=== PATIENT | female | born 1945 | race Caucasian/White ===

== ENCOUNTER 2018-10-30 23:43 | Inpatient (IN) | payer BC ==
--- NOTE | 2018-10-30 23:53 | Emergency Department Record ---
History of Present Illness - General Stated Complaint: KRYSTINA,NAUSEA Time Seen by Provider: 10/30/18 23:47 Source: Patient, EMS Mode of Arrival: EMS Limitations: No limitations - History of Present Illness Initial comments: 73 yo female presents by EMS. She states she did not feel well all day. She has had nausea, some vomiting and diarrhea during the day. She felt tired the day before. She has been constipated for about 3 days. She has taken two doses of Mirlax. In the evening she had a pain over the left flank under the left breast. The pain comes and goes. She has a history of atrial fibrillation, CHF, COPD, asthma, HTN, Crohn's, deconditioning, and obesity. No blood in the vomit or diarrhea. Dr Haines is her PCP. Dr Golden is her electophysiologist. 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 -: Days(s) Location: Left, Abdomen, Chest Radiation: Abdomen, Flank Quality: Other Consistency: Constant Improves with: None Worsens with: None Associated Symptoms: Chest pain, Loss of appetite, Nausea/vomiting, Weakness, Other (Diarrhea) - Ike Coma Scale Eye Response: (4) Open spontaneously Motor Response: (6) Obeys commands Verbal Response: (5) Oriented Ike Total: 15 - Related Data Home Medications Medication Instructions Recorded Confirmed Last Taken Acetaminophen [Tylenol Extra 500 mg PO Q4H PRN 10/31/18 10/31/18 Unknown Strength] Budesonide/Formoterol Fumarate 2 inh IH BID 10/31/18 10/31/18 Unknown [Symbicort 160-4.5 Mcg Inhaler] Bumetanide [Bumex] 2 mg PO DAILY 10/31/18 10/31/18 Unknown Calcium Carb, Citrate/Vit D3 1 each PO DAILY 10/31/18 10/31/18 Unknown [Citracal + D ER Tablet] Cyanocobalamin (Vitamin B-12) 2,000 mcg PO DAILY 10/31/18 10/31/18 Unknown [Vitamin B-12] Ferrous Sulfate [Iron] 325 mg PO DAILY 10/31/18 10/31/18 Unknown Fexofenadine HCl [Aller-Fex] 180 mg PO DAILY 10/31/18 10/31/18 Unknown Fluticasone Propionate 2 inh NS DAILY 10/31/18 10/31/18 Unknown Ipratropium/Albuterol Sulfate 1 puff IH QID PRN 10/31/18 10/31/18 Unknown [Combivent] Lisinopril 2.5 mg PO DAILY 10/31/18 10/31/18 Unknown Magnesium Oxide 400 mg PO TID 10/31/18 10/31/18 Unknown Metoprolol Succinate [Toprol Xl] 100 mg PO DAILY 10/31/18 10/31/18 Unknown Omeprazole 20 mg PO DAILYAC 10/31/18 10/31/18 Unknown Phenobarbital 30 mg PO BID 10/31/18 10/31/18 Unknown Polyethylene Glycol 3350 [Miralax] 17 gm PO DAILY 10/31/18 10/31/18 Unknown Rivaroxaban [Xarelto] 20 mg PO DAILY 10/31/18 10/31/18 Unknown Spironolactone [Aldactone] 25 mg PO DAILY 10/31/18 10/31/18 Unknown Sulfasalazine [Azulfidine] 1,000 mg PO BID 10/31/18 10/31/18 Unknown Ustekinumab [Stelara] 90 mg SQ MONTHLY 10/31/18 10/31/18 Unknown Allergies Allergy/AdvReac Type Severity Reaction Status Date / Time hops Allergy PT UNSURE Verified 10/31/18 00:05 OF REACTION strawberry Allergy PT UNSURE Verified 10/31/18 00:05 OF REACTION Review of Systems Constitutional: Reports: Malaise, Weakness. Denies: Chills, Fever Eyes: Denies: Eye discharge, Photophobia, Vision change ENT: Denies: Congestion, Throat pain Respiratory: Reports: Dyspnea. Denies: Cough, Hemoptysis, Wheezes Cardiovascular: Reports: Chest pain, Dyspnea on exertion, Edema. Denies: Palpitations, Syncope Endocrine: Reports: Fatigue Gastrointestinal: Reports: Abdominal pain, Constipation, Diarrhea, Nausea, Vomiting Genitourinary: Denies: Dysuria, Urgency Musculoskeletal: Denies: Arthralgia, Back pain, Joint swelling, Myalgia Skin: Denies: Bruising, Change in color, Rash Neurological: Denies: Confusion, Headache Psychiatric: Denies: Anxiety Hematological/Lymphatic: Denies: Easy bleeding, Easy bruising Physical Exam - General General Appearance: Alert, Oriented x3, Cooperative, No acute distress Limitations: No limitations - Head Head exam: Atraumatic, Normal inspection - Eye Eye exam: Normal appearance, PERRL. negative: Conjunctival injection, Scleral icterus - ENT ENT exam: Normal exam Ear exam: Normal external inspection Nasal Exam: Normal inspection Mouth exam: Normal external inspection - Neck Neck exam: Normal inspection - Respiratory Respiratory exam: Decreased breath sounds, Prolonged expiratory. negative: Normal lung sounds bilaterally - Cardiovascular Cardiovascular Exam: Irregular rhythm, Tachycardia. negative: Regular rate Peripheral Pulses: 2+: Radial (R), Radial (L) - GI/Abdominal GI/Abdominal exam: Soft - Rectal Rectal exam: Deferred, Heme (-) stool, Normal rectal tone. negative: Black stool, Bloody stool, Decreased rectal tone, Fecal impaction (No stool at the anus) - exam: Deferred - Extremities Extremities exam: Pedal edema. negative: Normal inspection - Back Back exam: Denies: CVA tenderness (R), CVA tenderness (L) - Neurological Neurological exam: Alert, Oriented X3 - Psychiatric Psychiatric exam: Normal affect, Normal mood - Skin Skin exam: Dry, Intact, Normal color, Warm Course - Reevaluation(s) Reevaluation #1: EKG #1: 23:49 Rate: 106 Rhythm: atrial fibrillation with PVC [place]: R Intervals: Qtc 471 ST segments: Inverted T waves inferior Prior: None 10/31/18 00:02 10/31/18 00:58 The CBC, CMP and Lipase were reviewed No significant changes The UA is negative for infection positive for ketones and 1.025 spec gravity The troponin is negative 10/31/18 01:34 On recheck the patient is resting comfortably. No nausea or pain. 10/31/18 02:[address] was reviewed. Extensive stool impaction involving the distal colon and rectum with mild rectal wall thickening suggesting proctitis resulting is a mild degree of distal colon obstruction, severe gall bladder distention, cardiomegaly, coronary calcifications, 10/31/18 02:29 Due to the extensive nature of the colonic stool an emema will be preformed in the ED then admit for further bowel treatment. 10/31/18 02:53 On MIREYA no stool at the anus to extract manual. Enema ordered prior to admission. 10/31/18 03:16 RN reports a copious amount of fecal material was produced with the enema Medical Decision Making - Lab Data Result diagrams: 10/30/18 23:30 10/30/18 23:30 Disposition Disposition: Admit Clinical Impression: Vomiting and diarrhea, Colonic constipation Disposition: Still a Patient at [facility] Decision to Admit: Admit from ER Decision to Admit Date: 10/31/18 Decision to Admit Time: 01:00 Condition: (2) Stable Time of Disposition: 00:59 Quality - Quality Measures Quality Measures: N/A - Blood Pressure Screening Does Patient Have Any of the Following: Active Dx of HTN Blood Pressure Classification: Normal BP Reading Systolic Measurement: 110 Diastolic Measurement: 41 Screening for High Blood Pressure: Patient Exclusion, Hx of HTN [[id number]]
[2018-10-31 00:07] LABS: HEMATOCRIT 40.3 % (35.0-47.0); HEMOGLOBIN 12.4 gm/dl (11.6-16.0); MEAN CELL VOLUME 95.3 fl (81-97); MEAN CORPUSCULAR HEMOGLOBIN 29.3 pg (27-33); MEAN CORPUSCULAR HGB CONC 30.8 g/dl (32-36); MEAN PLATELET VOLUME 9.5 fl (7.4-10.4); PLATELET COUNT 327 K/uL (130-400); RED BLOOD COUNT 4.23 M/uL (3.80-5.40); RED CELL DISTRIBUTION WIDTH 14.6 % (11.5-14.5); WHITE BLOOD COUNT W/O DIFF 9.1 K/uL (4.2-12.2)
[2018-10-31] MEDS ORDERED: ONDANSETRON HCL IV 4 MG/2 ML VIAL IVP ONE ×2 (00:14→03:03)
[2018-10-31 00:16] LABS: BLOOD UREA NITROGEN 16 mg/dL (8-23); CREATININE 0.4 mg/dL (0.5-0.9); EST GLOMERULAR FILTRATION RATE > 60 mL/min
[2018-10-31 00:17] LABS: TOTAL PROTEIN 6.8 g/dL (6.6-8.7)
[2018-10-31 00:19] LABS: GLUCOSE,RANDOM 161 mg/dL (74-109)
[2018-10-31 00:21] LABS: ALB/GLOB RATIO 1.2 (1.1-1.8); ALBUMIN 3.7 g/dL (4.0-5.0); ALT/SGPT 26 U/L (<33); AST/SGOT 21 U/L (10.0-35.0)
[2018-10-31 00:22] LABS: ALKALINE PHOSPHATASE 206 U/L (35-104)
[2018-10-31 00:27] LABS: ABSOLUTE NEUTROPHIL COUNT 4.46; ANISOCYTOSIS 1+; PLATELET ESTIMATE NORMAL (NORMAL); TOXIC GRANULATION 1+
[2018-10-31 00:37] LABS: URINE APPEARANCE CLEAR; URINE BILIRUBIN MODERATE (NEGATIVE); URINE BLOOD NEGATIVE (NEGATIVE); URINE COLOR YELLOW; URINE GLUCOSE (UA) NEGATIVE (NEGATIVE); URINE KETONE TRACE (NEGATIVE); URINE LEUKOCYTE ESTERASE NEGATIVE (NEGATIVE); URINE NITRITE NEGATIVE (NEGATIVE); URINE PROTEIN NEGATIVE (NEGATIVE)
[2018-10-31] MEDS ORDERED: ORPHENADRINE CITRATE 100 MG PO PRN (03:40)
[2018-10-31] MEDS ORDERED: POLYETHYLENE GLY 17 GM PACKET PO ONE (03:40)
[2018-10-31] MEDS ORDERED: ONDANSETRON HCL IV 4 MG/2 ML VIAL IVP PRN (03:40)
--- NOTE | 2018-10-31 07:03 | History & Physical ---
History of Present Illness - Date of Service Date of Service for History & Physical: 10/31/18 - History of Present Illness Admitting Diagnosis: atrial fibrillation, constipation, vomiting History of Present Illness: Mrs. Bowden is a 73 y/o female who says that she began having what she describes as abdominal 'tightness' and trouble breathing yesterday. She says that her symptoms gradually got worse and she didn't have anyone to call so she called EMS. The patient says that she felt nauseated but denies, chest pain, shortness of breath, diarrhea, fever or chills. She states that she used Miralax about 3 days ago prior to coming in due to constipation. She says that her last bowel was about 4 days ago and it was normal for her and was not bloody. The patient says that she had a colonoscopy in May 2018 and there was no significant findings. On presentation the ED the patient still complained of mild abdominal discomfort and abdominal CT showed significant fecal matter. (Radiology recalled at approx 8:55 am to report read error and notes partial small bowel obstruction.) The patient is admitted to the [facility] for bowel rest and pain control. PCP: Dr. Luca Rowan Hx of brain tumor on pehnobarb Travel Screening - Travel/Exposure Within Last 30 Days Have you traveled within the last 30 days?: No - Travel/Exposure Within Last Year Have you traveled outside the [place] in the last year?: No - Additonal Travel Details Have you been exposed to anyone with a communicable illness?: No - Travel Symptoms Symptom Screening: Vomiting, Stomach Pain Review of Systems Constitutional: Reports: Malaise, Weakness. Denies: Chills, Fever Eyes: Denies: Eye discharge, Photophobia, Vision change ENT: Denies: Congestion, Throat pain Respiratory: Reports: Dyspnea. Denies: Cough, Hemoptysis, Wheezes Cardiovascular: Reports: Chest pain, Dyspnea on exertion, Edema. Denies: Palpitations, Syncope Endocrine: Reports: Fatigue Gastrointestinal: Reports: Abdominal pain, Constipation, Diarrhea, Nausea, Vomiting Genitourinary: Denies: Dysuria, Urgency Musculoskeletal: Denies: Arthralgia, Back pain, Joint swelling, Myalgia Skin: Denies: Bruising, Change in color, Rash Neurological: Denies: Confusion, Headache Psychiatric: Denies: Anxiety Hematological/Lymphatic: Denies: Easy bleeding, Easy bruising Past Medical History - SOCIAL HISTORY Smoking Status: Former smoker Alcohol Use: Rare Drug Use: None - RESPIRATORY Hx Respiratory Disorders: Yes Hx COPD: Yes Hx Pneumonia: Yes Hx Sleep Apnea: Yes Hx of CPAP: Yes Comment:: left CPAP at home - CARDIOVASCULAR Hx Cardio Disorders: Yes Hx CHF: Yes (years ago) Hx Hypertension: Yes Hx Irregular Heartbeat: Yes (afib) - NEURO Hx Neuro Disorders: Yes Hx Brain Tumor: Yes (benign) - GI Hx GI Disorders: Yes Hx Crohn's Disease: Yes Hx Reflux: Yes Hx Wt Loss/Wt Gain: Yes (gain) - Hx Genitourinary Disorders: No - ENDOCRINE Hx Endocrine Disorders: No - MUSCULOSKELETAL Hx Musculoskeletal Disorders: Yes Hx Arthritis: Yes Hx Back Injury: Yes - PSYCH Hx Psych Problems: No - HEMATOLOGY/ONCOLOGY Hx Hematology/Oncology Disorders: Yes Hx Anemia: Yes Family Medical History Any Significant Family History?: No Hx Cancer: Mother Hx Diabetes: Father Hx Heart Disease: Father, Grandparents Hx HTN: Father Hx Resp Disorders: Brother/Sister *Resp Comment: brothers with asthma Hx Stroke: Grandparents H&P Meds/Allergies - Allergies Allergies: Allergies Allergy/AdvReac Type Severity Reaction Status Date / Time hops Allergy PT UNSURE Verified 10/31/18 00:05 OF REACTION strawberry Allergy PT UNSURE Verified 10/31/18 00:05 OF REACTION - Home Medications Home Medications Medication Instructions Recorded Confirmed Last Taken Acetaminophen [Tylenol Extra 500 mg PO Q4H PRN 10/31/18 10/31/18 Unknown Strength] Budesonide/Formoterol Fumarate 2 inh IH BID 10/31/18 10/31/18 Unknown [Symbicort 160-4.5 Mcg Inhaler] Bumetanide [Bumex] 2 mg PO DAILY 10/31/18 10/31/18 Unknown Calcium Carb, Citrate/Vit D3 1 each PO DAILY 10/31/18 10/31/18 Unknown [Citracal + D ER Tablet] Cyanocobalamin (Vitamin B-12) 2,000 mcg PO DAILY 10/31/18 10/31/18 Unknown [Vitamin B-12] Ferrous Sulfate [Iron] 325 mg PO DAILY 10/31/18 10/31/18 Unknown Fexofenadine HCl [Aller-Fex] 180 mg PO DAILY 10/31/18 10/31/18 Unknown Fluticasone Propionate 2 inh NS DAILY 10/31/18 10/31/18 Unknown Ipratropium/Albuterol Sulfate 1 puff IH QID PRN 10/31/18 10/31/18 Unknown [Combivent] Lisinopril 2.5 mg PO DAILY 10/31/18 10/31/18 Unknown Magnesium Oxide 400 mg PO TID 10/31/18 10/31/18 Unknown Metoprolol Succinate [Toprol Xl] 100 mg PO DAILY 10/31/18 10/31/18 Unknown Omeprazole 20 mg PO DAILYAC 10/31/18 10/31/18 Unknown Phenobarbital 30 mg PO BID 10/31/18 10/31/18 Unknown Polyethylene Glycol 3350 [Miralax] 17 gm PO DAILY 10/31/18 10/31/18 Unknown Rivaroxaban [Xarelto] 20 mg PO DAILY 10/31/18 10/31/18 Unknown Spironolactone [Aldactone] 25 mg PO DAILY 10/31/18 10/31/18 Unknown Sulfasalazine [Azulfidine] 1,000 mg PO BID 10/31/18 10/31/18 Unknown Ustekinumab [Stelara] 90 mg SQ MONTHLY 10/31/18 10/31/18 Unknown - Active Medications Active Medications: Current Medications Fluticasone Propionate (Flonase) 1 spray NA DAILY [facility] Lisinopril (Zestril) 2.5 mg PO DAILY [facility] Metoprolol Succinate (Toprol Xl) 100 mg PO DAILY [facility] Non-Formulary Medication (Budesonide/Formoterol Fumarate [Symbicort 160-4.5 Mcg Inhaler]) 10.2 gm IH TID PRN PRN Reason: DIFFICULTY IN BREATHING Non-Formulary Medication (Orphenadrine Citrate [Norflex]) 100 mg PO Q12H PRN PRN Reason: SPASMS Non-Formulary Medication (Phenobarbital [Phenobarbital]) 30 mg PO BID [facility] Ondansetron HCl (Zofran) 4 mg IVP Q4H PRN PRN Reason: NAUSEA Pantoprazole Sodium (Protonix) 40 mg PO DAILYAC [facility] Polyethylene Glycol (Miralax) 17 gm PO DAILY [facility] Rivaroxaban (Xarelto) 20 mg PO DAILY [facility] Spironolactone (Aldactone) 25 mg PO DAILY [facility] Tramadol HCl (Ultram) 50 mg PO BID [facility] Physical Exam - Vital Signs Vital Signs: Vital Signs - Last 24 Hrs Temp Pulse Pulse Resp BP BP Pulse Ox 10/31/18 03:40 97.8 F 91 H 22 134/58 96 10/31/18 03:05 84 20 98 10/31/18 01:41 94 H 24 154/97 97 10/31/18 00:34 106 H 24 123/67 94 L 10/30/18 23:45 97.6 F 83 24 110/41 94 L - General General Appearance: Alert, Oriented x3, Cooperative, No acute distress Limitations: No limitations - Head Head exam: Atraumatic, Normal inspection - Eye Eye exam: Normal appearance, PERRL. negative: Conjunctival injection, Scleral icterus - ENT ENT exam: Normal exam Ear exam: Normal external inspection Nasal Exam: Normal inspection Mouth exam: Normal external inspection - Neck Neck exam: Normal inspection - Respiratory Respiratory exam: Decreased breath sounds, Prolonged expiratory. negative: Normal lung sounds bilaterally - Cardiovascular Cardiovascular Exam: Irregular rhythm, Tachycardia. negative: Regular rate Peripheral Pulses: 2+: Radial (R), Radial (L) - GI/Abdominal GI/Abdominal exam: Soft, Distended, Hyperactive bowel sounds. negative: Tenderness - Rectal Rectal exam: Deferred, Heme (-) stool, Normal rectal tone. negative: Black stool, Bloody stool, Decreased rectal tone, Fecal impaction (No stool at the anus) - exam: Deferred - Extremities Extremities exam: Pedal edema. negative: Normal inspection - Back Back exam: Denies: CVA tenderness (R), CVA tenderness (L) - Neurological Neurological exam: Alert, Oriented X3 - Psychiatric Psychiatric exam: Normal affect, Normal mood - Skin Skin exam: Dry, Intact, Normal color, Warm Results - Labs Result Diagrams: 10/30/18 23:30 10/30/18 23:30 Labs Last 24 Hours: Laboratory Results - last 24 hr 10/30/18 10/30/18 10/31/18 23:30 23:30 00:01 WBC 9.1 RBC 4.23 Hgb 12.4 Hct 40.3 MCV 95.3 MCH 29.3 MCHC 30.8 L RDW 14.6 H Plt Count 327 MPV 9.5 Neutrophils % 49.0 Band Neutrophils % 22.0 H Eosinophils % Not Reportable Basophils % Not Reportable Absolute Neutrophils 4.46 Lymphocytes 11.0 L Monocytes 18.0 H Toxic Granulation 1+ Platelet Estimate Normal Anisocytosis 1+ Sodium 138 Potassium 4.0 Chloride 99 Carbon Dioxide 27.0 Anion Gap 12.0 BUN 16 Creatinine 0.4 L Estimated GFR > 60 Random Glucose 161 H Calcium 8.8 Total Bilirubin 0.90 AST 21 ALT 26 Alkaline Phosphatase 206 H Troponin T < 0.010 NT-Pro-B Natriuret Pep 798.00 H Total Protein 6.8 Albumin 3.7 L Globulin 3.1 Albumin/Globulin Ratio 1.2 Lipase 11 L Urine Color Urine Appearance Urine pH Ur Specific [place] Urine Protein Urine Glucose (UA) Urine Ketones Urine Blood Urine Nitrite Urine Bilirubin Urine Urobilinogen Ur Leukocyte Esterase 10/31/18 00:20 WBC RBC Hgb Hct MCV MCH MCHC RDW Plt Count MPV Neutrophils % Band Neutrophils % Eosinophils % Basophils % Absolute Neutrophils Lymphocytes Monocytes Toxic Granulation Platelet Estimate Anisocytosis Sodium Potassium Chloride Carbon Dioxide Anion Gap BUN Creatinine Estimated GFR Random Glucose Calcium Total Bilirubin AST ALT Alkaline Phosphatase Troponin T NT-Pro-B Natriuret Pep Total Protein Albumin Globulin Albumin/Globulin Ratio Lipase Urine Color Yellow Urine Appearance Clear Urine pH 6.0 Ur Specific [place] 1.025 Urine Protein Negative Urine Glucose (UA) Negative Urine Ketones Trace H Urine Blood Negative Urine Nitrite Negative Urine Bilirubin Moderate H Urine Urobilinogen 1.0 Ur Leukocyte Esterase Negative VTE H&P Assessment - Risk for VTE Risk for VTE: Yes Risk Level: High Risk Assessment Date: 10/31/18 Risk Assessment Time: 08:40 VTE Orders Placed or Will Be Placed: Yes Plan - Inpatient Certification Inpatient Certification: Admit to inpatient care: Based on my medical assessment, after consideration of patient's risk factors (age, co-morbidities and patient presenting symptoms and acuity), I expect that this patient will remain in the hospital greater than or equal to two midnights and that the services needed warrant inpatient care because: Patient Risk Factors: partial SBO, CHF, A fib Estimated length of stay: 72 hrs The patient may reasonably be expected to be discharged or transferred to a hospital within 96 hours after admission to [facility]. I certify that my determination is in accordance with my understanding of Medicare requirements for reasonable and necessary inpatient services. 10/31/18 10:06 - Detailed Diagnosis and Plan (1) Colonic constipation Current Visit: Yes Status: Acute Base Code: K59.00 - CONSTIPATION, UNSPECIF IED Comment: 10/31/18: - Last bowel movement before admission: - CT abdomen: significant bowel distension and large volume fecal matter, multiple loops of dilated small bowel, thickening at transition zone with possibility of partial small bowel loop. - 1 large bowel movement after enema given. - Continue with polyethylene gylcol, NPO, gentle IVF 0.9% @ 75mL/hr due to hx of CHF. (2) Atrial fibrillation Current Visit: Yes Status: Acute Base Code: I48.91 - UNSPECIFIED ATRIAL FIBRILLATION Comment: 10/31/18: - Rate controlled chronic atrial fibrillation. - ECG: rate controlled a fib, vent rate approx 105. No acute ST-T changes. - Resume Toprolol XL 100mg QD, anticoagulation with Xarelto 20mg QD. - Continuous cardiac monitoring. (3) Hx of chronic congestive heart failure Current Visit: Yes Status: Acute Base Code: Z86.79 - PERSONAL HISTORY OF OTHER DISEASES OF THE CIRCULATORY SYSTEM Comment: 10/31/18: - Resume home doses of Bumex, Aldactone,Toprolol, Lisinopril. - NPO, IVF 0.9% @ 75mL/hr. (4) COPD (chronic obstructive pulmonary disease) Current Visit: Yes Status: Acute Base Code: J44.9 - CHRONIC OBSTRUCTIVE PU LMONARY DISEASE, UNSPECIFIED Comment: 10/31/18: - Respiratory therapy with Breo, Albuterol nebs PRN. (5) DVT prophylaxis Current Visit: Yes Status: Acute Base Code: Z29.9 - ENCOUNTER FOR PROPHYLACTIC MEASURES, UNSPECIFIED Comment: 10/31/18: - High risk due to a fib, obesity, CHF. - Therapeutic dosing of Xarelto due to chronic a fib. (6) Full code status Current Visit: Yes Status: Acute Base Code: Z78.9 - OTHER SPECIFIED HEALTH STATUS Comment: 10/31/18: - Full code status.
[2018-10-31] MEDS: PANTOPRAZOLE SODIUM 40 MG TABLET PO SCH (08:42)
--- NOTE | 2018-10-31 08:52 | RADIOLOGY REPORT ---
EXAM: PORTABLE CHEST HISTORY: LET SIDED CHEST PAIN. SHORTNESS OF BREATH. TECHNIQUE: A single mobile semi-erect view of the chest was obtained. Comparison: None. FINDINGS: The image is obtained with the patient in a lordotic position. There is enlargement of the cardio-pericardial silhouette which appears somewhat globular. This is consistent with cardiomegaly. underlying pericardial effusion is not excluded. No pulmonary venous hypertension is seen. No definite lung consolidation, costophrenic angle blunting or pneumothorax identified though the left hemithorax base is not optimally evaluated due to underpenetration. The aortic knob is atherosclerotic. IMPRESSION: 1. ENLARGED CARDIO-PERICARDIAL SILHOUETTE CONSISTENT WITH CARDIOMEGALY AND POSSIBLE PERICARDIAL EFFUSION. NO PULMONARY VENOUS HYPERTENSION. NO DEFINITE ACUTE PULMONARY PROCESS THOUGH EVALUATION OF THE LEFT BASE IS LIMITED BY UNDERPENETRATION. JOB NUMBER: [id number] MTDD
[2018-10-31] MEDS ORDERED: KETOROLAC 30 MG/ML VIAL IVP ONE (09:13)
[2018-10-31] MEDS ORDERED: 0.9 % SODIUM CHLORIDE 100ML BAG IV SCH (09:15)
[2018-10-31] MEDS ORDERED: ALBUTEROL SULFATE (0.083%) 2.5 MG/3 ML NEB INH PRN (09:17)
--- NOTE | 2018-10-31 09:36 | CT SCAN REPORT ---
EXAM: CT OF THE ABDOMEN AND PELVIS WITH CONTRAST HISTORY: DIFFICULTY IN BREATHING. TIGHTNESS IN CHEST. LEFT SIDED PAIN. TECHNIQUE: Contrast enhanced helical CT examination of the abdomen and pelvis was performed including delayed images through the kidneys with 100 ml of Omnipaque 300 utilized. Comparison: Same day portable chest. FINDINGS: There is evidence of four chamber heart enlargement. There is mild calcification of the mitral annulus. No pericardial effusion. Minor linear scarring versus atelectasis is present within the left lung base laterally. Mild compressive atelectasis within the posteromedial left lung base. No lung base consolidation, pleural effusion or pneumothorax. The liver, spleen, pancreas, right adrenal gland, and left kidney are normal in appearance. A tiny hypodensity is demonstrated within the lateral right mid kidney measuring 6 mm. This is nonspecific, but likely a cyst. There is a tiny fat density focus questioned in the posteromedial right mid kidney suggesting a tiny angiomyolipoma. The right kidney is otherwise normal in appearance. There is s small left adrenal gland mass measuring 1.4 cm in maximum diameter. On portal venous phase images this has a density of 47 Hounsfield units. On delayed images, 23 Hounsfield units. This is greater than 40% relative washout and is consistent with adrenal adenoma. There is moderate distention of the gallbladder. This is nonspecific. There is likely sludge or tiny noncalcified stones within the dependent gallbladder. No gallbladder wall thickening or pericholecystic fluid. No biliary ductal dilatation. No intraabdominal nor retroperitoneal lymphadenopathy. There are a few nonenlarged periportal lymph nodes present. The portal vein is patent. There is mild atherosclerosis without aneurysmal dilatation of the abdominal aorta nor iliac arteries. The uterus is surgically absent. No intrinsic urinary bladder abnormality. There is a large amount of stool within the rectal vault. The wall of the distal rectum appears borderline to mildly prominent. This is consistent with stercoral proctitis. Additionally, there is a moderate to large amount of stool within the colon. There is a small sliding type hiatal hernia. There are multiple loops of gas and fluid distended, dilated small bowel with associated air fluid levels extending to the distal ileum level where there is a relatively narrow zone of transition. Just beyond the narrow zone of transition the bowel wall appears mildly thickened and there is a questionable enterocolic anastomosis present. The etiology of this is uncertain. This apparent wall thickening may be partially explained by lack of distention. A segment of inflammation or less likely mass are also considered. No pneumatosis intestinalis. No free intraperitoneal air. No lytic or blastic bone lesion. IMPRESSION: 1. MULTIPLE DILATED SMALL BOWEL LOOPS TO THE LEVEL OF THE DISTAL ILEUM WHERE THERE IS A RELATIVE NARROW ZONE OF TRANSITION AND BEYOND THE ZONE OF TRANSITION THE DISTAL ILEUM WALL APPEARS SOMEWHAT THICKENED. THESE FINDINGS ARE SUSPICIOUS FOR A PARTIAL SMALL BOWEL OBSTRUCTION. PARALYTIC ILEUS IS LESS LIKELY. THERE IS A QUESTIONABLE ENTEROCOLIC ANASTOMOSIS IN THE RIGHT MID ABDOMEN. 2. LARGE AMOUNT OF STOOL WITHIN THE RECTAL VAULT WITH MALL THICKENING CONSISTENT WITH STERCORAL PROCTITIS. IMPACTION IS POSSIBLE. 3. SMALL LEFT ADRENAL ADENOMA. 4. TOO SMALL TO CHARACTERIZE HYPODENSE LESIONS WITHIN THE RIGHT KIDNEY, DISCUSSED ABOVE., 5. SMALL SLIDING TYPE HIATAL HERNIA. 6. CARDIOMEGALY. JOB NUMBER: [id number] [facility]
[2018-10-31] MEDS ORDERED: FLUTICASONE PROPIONATE 50MCG NASAL 16 GM BTL SCH (10:00)
[2018-10-31] MEDS ORDERED: PHENOBARBITAL 30 MG PO SCH (10:00)
[2018-10-31] MEDS ORDERED: IPRATROPIUM/ALBUTEROL (0.5MG/3MG) NEB INH PRN (10:00)
[2018-10-31] MEDS ORDERED: TRAMADOL HCL 50 MG TABLET PO SCH (10:00)
[2018-10-31] MEDS: BREO (FLUTICASONE/VILANTEROL) 200MCG/25MCG INHALER INH SCH (10:14)
[2018-10-31] MEDS: METOPROLOL SUCC 50 MG TABLET PO SCH (10:40)
[2018-10-31] MEDS: MAGNESIUM OXIDE 400 MG TABLET PO SCH ×2 (10:40→21:20)
[2018-10-31] MEDS: PHENOBARBITAL 60 MG PO SCH ×2 (10:40→21:21)
[2018-10-31] MEDS: BUMETANIDE 1 MG TABLET PO SCH (10:40)
[2018-10-31] MEDS: SPIRONOLACTONE 25 MG TAB PO SCH (10:40)
[2018-10-31] MEDS: 0.9 % SODIUM CHLORIDE 1000ML 1,000 ML IV SCH (10:40)
[2018-10-31] MEDS: LISINOPRIL 5 MG TABLET PO SCH (10:40)
[2018-10-31] MEDS: PATIENT OWN MED: SULFASALAZINE 500 MG PO SCH ×2 (11:08→21:20)
[2018-10-31] MEDS: POLYETHYLENE GLY 17 GM PACKET PO SCH (11:17)
[2018-10-31] MEDS ORDERED: RIVAROXABAN 20 MG TABLET PO SCH (17:30)
[2018-11-01] MEDS: 0.9 % SODIUM CHLORIDE 1000ML 1,000 ML IV SCH (00:33)
[2018-11-01] MEDS ORDERED: ACETAMINOPHEN 500 MG TABLET PO PRN (04:58)
[2018-11-01] MEDS: PANTOPRAZOLE SODIUM 40 MG TABLET PO SCH (06:11)
[2018-11-01 06:38] LABS: HEMATOCRIT 35.8 % (35.0-47.0); HEMOGLOBIN 10.4 gm/dl (11.6-16.0); MEAN CELL VOLUME 99.4 fl (81-97); MEAN CORPUSCULAR HGB CONC 29.1 g/dl (32-36); MEAN PLATELET VOLUME 9.2 fl (7.4-10.4); PLATELET COUNT 275 K/uL (130-400); RED CELL DISTRIBUTION WIDTH 14.8 % (11.5-14.5)
[2018-11-01 06:39] LABS: MEAN CORPUSCULAR HEMOGLOBIN 28.8 pg (27-33)
[2018-11-01 06:57] LABS: ALB/GLOB RATIO 1.1 (1.1-1.8); ALKALINE PHOSPHATASE 160 U/L (35-104); ALT/SGPT 17 U/L (<33); AST/SGOT 12 U/L (10.0-35.0); BLOOD UREA NITROGEN 17 mg/dL (8-23); CREATININE 0.7 mg/dL (0.5-0.9); EST GLOMERULAR FILTRATION RATE > 60 mL/min; GLUCOSE,RANDOM 119 mg/dL (74-109); LIPASE 9 U/L (13-60); TOTAL PROTEIN 5.7 g/dL (6.6-8.7)
[2018-11-01] MEDS: BREO (FLUTICASONE/VILANTEROL) 200MCG/25MCG INHALER INH SCH (09:45)
[2018-11-01] MEDS: LISINOPRIL 5 MG TABLET PO SCH (09:56)
[2018-11-01] MEDS: SPIRONOLACTONE 25 MG TAB PO SCH (09:57)
[2018-11-01] MEDS: POLYETHYLENE GLY 17 GM PACKET PO SCH (09:57)
[2018-11-01] MEDS: MAGNESIUM OXIDE 400 MG TABLET PO SCH (09:57)
[2018-11-01] MEDS: BUMETANIDE 1 MG TABLET PO SCH (09:57)
[2018-11-01] MEDS: METOPROLOL SUCC 50 MG TABLET PO SCH (09:57)
[2018-11-01] MEDS: PATIENT OWN MED: SULFASALAZINE 500 MG PO SCH (10:02)
[2018-11-01] MEDS: PHENOBARBITAL 60 MG PO SCH (10:03)
--- NOTE | 2018-11-01 10:14 | Discharge Summary ---
Providers Discharge Summary Date: 11/01/18 Date of admission: 10/31/18 03:19 Attending physician: ERMA MCKEON Primary care physician: ALFA HORN D.O. Physical Exam - Vital Signs Vital Signs: Vital Signs - Last 24 Hrs Temp Pulse Pulse Pulse Resp BP Pulse Ox 11/01/18 09:48 103 H 20 97 11/01/18 08:39 98.4 F 103 H 18 115/59 90 L 11/01/18 04:55 97.3 F L 89 18 131/67 96 11/01/18 00:00 90 20 114/59 97 10/31/18 21:26 18 10/31/18 20:01 98.3 F 88 18 120/54 98 10/31/18 16:27 97.8 F 97 H 16 142/81 94 L 10/31/18 11:30 97.9 F 107 H 18 160/69 93 L - General General Appearance: Alert, Oriented x3, Cooperative, No acute distress Limitations: No limitations - Head Head exam: Atraumatic, Normal inspection - Eye Eye exam: Normal appearance, PERRL. negative: Conjunctival injection, Scleral icterus - ENT ENT exam: Normal exam Ear exam: Normal external inspection Nasal Exam: Normal inspection Mouth exam: Normal external inspection - Neck Neck exam: Normal inspection - Respiratory Respiratory exam: Decreased breath sounds, Prolonged expiratory. negative: Normal lung sounds bilaterally - Cardiovascular Cardiovascular Exam: Irregular rhythm, Tachycardia. negative: Regular rate Peripheral Pulses: 2+: Radial (R), Radial (L) - GI/Abdominal GI/Abdominal exam: Soft, Normal bowel sounds. negative: Tenderness - Rectal Rectal exam: Deferred, Heme (-) stool, Normal rectal tone. negative: Black stool, Bloody stool, Decreased rectal tone, Fecal impaction (No stool at the anus) - exam: Deferred - Extremities Extremities exam: Pedal edema, Other (left calf erythema ). negative: Normal inspection - Back Back exam: Denies: CVA tenderness (R), CVA tenderness (L) - Neurological Neurological exam: Alert, Oriented X3 - Psychiatric Psychiatric exam: Normal affect, Normal mood - Skin Skin exam: Dry, Intact, Normal color, Warm Hospitalization - Hospitalization Admission Diagnosis: atrial fibrillation, constipation, vomiting - Problem List/Discharge Diagnosis (1) Colonic constipation Current Visit: Yes Status: Acute Base Code: K59.00 - CONSTIPATION, UNSPECIFIED Comment: 11/01/18: - Last bowel movement before admission: - CT abdomen: significant bowel distension and large volume fecal matter, multiple loops of dilated small bowel, thickening at transition zone with possibility of partial small bowel loop. - 1 large bowel movement after enema given. - Continue with polyethylene gylcol, NPO, gentle IVF 0.9% @ 75mL/hr due to hx of CHF. - CMP, CBC w/diff, Lipase 11/01/ WNL. - 2 large bowel movements yesterday. - Tolerating clear liquid diet. Advance to soft diet this morning. (2) Atrial fibrillation Current Visit: Yes Status: Acute Base Code: I48.91 - UNSPECIFIED ATRIAL FIBRILLATION Comment: 11/01/18: - Rate controlled chronic atrial fibrillation. Stable - ECG: rate controlled a fib, vent rate approx 105. No acute ST-T changes. - Resume Toprolol XL 100mg QD, anticoagulation with Xarelto 20mg QD. - Continuous cardiac monitoring. (3) Hx of chronic congestive heart failure Current Visit: Yes Status: Acute Base Code: Z86.79 - PERSONAL HISTORY OF OTHER DISEASES OF THE CIRCULATORY SYSTEM Comment: 11/01/18: - Resume home doses of Bumex, Aldactone,Toprolol, Lisinopril. - NPO, IVF 0.9% @ 75mL/hr. (4) COPD (chronic obstructive pulmonary disease) Current Visit: Yes Status: Acute Base Code: J44.9 - CHRONIC OBSTRUCTIVE PULMONARY DISEASE, UNSPECIFIED Comment: 11/01/18: - Respiratory therapy with Breo, Albuterol nebs PRN. (5) DVT prophylaxis Current Visit: Yes Status: Acute Base Code: Z29.9 - ENCOUNTER FOR PROPHYLACTIC MEASURES, UNSPECIFIED Comment: 11/01/18: - High risk due to a fib, obesity, CHF. - Therapeutic dosing of Xarelto due to chronic a fib. (6) Full code status Current Visit: Yes Status: Acute Base Code: Z78.9 - OTHER SPECIFIED HEALTH STATUS Comment: 11/01/18: - Full code status. (7) Cellulitis of right anterior lower leg Current Visit: Yes Status: Acute Base Code: L03.115 - CELLULITIS OF RIGHT LOWER LIMB Comment: 11/01/18: - Mild, non-purulent cellulitis of right leg. - Hx of venous insufficiency. - Keflex 500mg BID x 7 days. No reported abx allergies. - Hospitalization Course Disposition: Home, Self-Care Hospital Course: Mrs. Bowden is a 73 y/o female who says that she began having what she describes as abdominal 'tightness' and trouble breathing yesterday. She says that her symptoms gradually got worse and she didn't have anyone to call so she called EMS. The patient says that she felt nauseated but denies, chest pain, shortness of breath, diarrhea, fever or chills. She states that she used Miralax about 3 days ago prior to coming in due to constipation. She says that her last bowel was about 4 days ago and it was normal for her and was not bloody. The patient says that she had a colonoscopy in May 2018 and there was no significant findings. On presentation the ED the patient still complained of mild abdominal discomfort and abdominal CT showed significant fecal matter. (Radiology recalled at approx 8:55 am to report read error and notes partial small bowel obstruction.) The patient is admitted to the [facility] for bowel rest and pain control. PCP: Dr. Alfa Rowan 10/31: The patient had 2 large volume bowel movements and symptoms of abdominal pain and nausea abated. She was advanced to clear liquid diets which she tolerated well. 11/01: On examination this morning the patient is asymptomatic and has been able to tolerate liquid diet. IV fluids were discontinued and the patient was advanced to a soft diet. Labs this morning: Lipase 9, WBC 6, no electrolyte abnormalities. Right lower leg noted to have mild erythema. Patient is to be started on Keflex at discharge. Following of with the center for vein [facility] next week for venous insufficiency. Procedures: Imaging and X-Rays 10/30/18 23:47 CHEST 1 VIEW [RAD] Stat 10/31/18 00:39 ABDOMEN/PELVIS W CONTRAST [CT] Stat Cardiology Procedures 10/30/18 23:47 Chief Underwriter NOW EKG NOW 10/31/18 03:40 Chief Underwriter .Continuous Abnormal Labs: Abnormal Lab Results 10/30/18 10/30/18 10/31/18 Range/Units 23:30 23:30 00:01 RBC (3.80-5.40) M/uL Hgb (11.6-16.0) gm/dl MCV (81-97) fl MCHC 30.8 L (32-36) g/dl RDW 14.6 H (11.5-14.5) % Band Neutrophils % 22.0 H (0-5) % Lymphocytes 11.0 L (16-45) % Monocytes 18.0 H (0-9) % Creatinine 0.4 L (0.5-0.9) mg/dL POC Glucose (70-110) mg/dL Random Glucose 161 H (74-109) mg/dL Calcium (8.8-10.2) mg/dL Alkaline Phosphatase 206 H (35-104) U/L NT-Pro-B Natriuret Pep 798.00 H (<125) pg/mL Total Protein (6.6-8.7) g/dL Albumin 3.7 L (4.0-5.0) g/dL Lipase 11 L (13-60) U/L Urine Ketones (NEGATIVE) Urine Bilirubin (NEGATIVE) 10/31/18 10/31/18 11/01/18 Range/Units 00:20 21:47 06:23 RBC 3.60 L (3.80-5.40) M/uL Hgb 10.4 L (11.6-16.0) gm/dl MCV 99.4 H (81-97) fl MCHC 29.1 L (32-36) g/dl RDW 14.8 H (11.5-14.5) % Band Neutrophils % (0-5) % Lymphocytes (16-45) % Monocytes 23.0 H (0-9) % Creatinine (0.5-0.9) mg/dL POC Glucose 123 H (70-110) mg/dL Random Glucose (74-109) mg/dL Calcium (8.8-10.2) mg/dL Alkaline Phosphatase (35-104) U/L NT-Pro-B Natriuret Pep (<125) pg/mL Total Protein (6.6-8.7) g/dL Albumin (4.0-5.0) g/dL Lipase (13-60) U/L Urine Ketones Trace H (NEGATIVE) Urine Bilirubin Moderate H (NEGATIVE) 11/01/18 Range/Units 06:23 RBC (3.80-5.40) M/uL Hgb (11.6-16.0) gm/dl MCV (81-97) fl MCHC (32-36) g/dl RDW (11.5-14.5) % Band Neutrophils % (0-5) % Lymphocytes (16-45) % Monocytes (0-9) % Creatinine (0.5-0.9) mg/dL POC Glucose (70-110) mg/dL Random Glucose 119 H (74-109) mg/dL Calcium 8.2 L (8.8-10.2) mg/dL Alkaline Phosphatase 160 H (35-104) U/L NT-Pro-B Natriuret Pep (<125) pg/mL Total Protein 5.7 L (6.6-8.7) g/dL Albumin 3.0 L (4.0-5.0) g/dL Lipase 9 L (13-60) U/L Urine Ketones (NEGATIVE) Urine Bilirubin (NEGATIVE) Condition at Discharge: (2) Stable Discharge Medications - Discharge Medications Prescriptions: Cephalexin [Keflex] 500 mg PO BID 7 Days #14 cap Home Medications: Ambulatory Orders Acetaminophen [Tylenol Extra Strength] 500 mg PO Q4H PRN 10/31/18 [Last Taken Unknown] Budesonide/Formoterol Fumarate [Symbicort 160-4.5 Mcg Inhaler] 2 inh IH BID 10/31/18 [Last Taken Unknown] Bumetanide [Bumex] 2 mg PO DAILY 10/31/18 [Last Taken Unknown] Calcium Carb, Citrate/Vit D3 [Citracal + D ER Tablet] 1 each PO DAILY 10/31/18 [Last Taken Unknown] Cyanocobalamin (Vitamin B-12) [Vitamin B-12] 2,000 mcg PO DAILY 10/31/18 [Last Taken Unknown] Ferrous Sulfate [Iron] 325 mg PO DAILY 10/31/18 [Last Taken Unknown] Fexofenadine HCl [Aller-Fex] 180 mg PO DAILY 10/31/18 [Last Taken Unknown] Fluticasone Propionate 2 inh NS DAILY 10/31/18 [Last Taken Unknown] Ipratropium/Albuterol Sulfate [Combivent] 1 puff IH QID PRN 10/31/18 [Last Taken Unknown] Lisinopril 2.5 mg PO DAILY 10/31/18 [Last Taken Unknown] Magnesium Oxide 400 mg PO TID 10/31/18 [Last Taken Unknown] Metoprolol Succinate [Toprol Xl] 100 mg PO DAILY 10/31/18 [Last Taken Unknown] Omeprazole 20 mg PO DAILYAC 10/31/18 [Last Taken Unknown] Phenobarbital 30 mg PO BID 10/31/18 [Last Taken Unknown] Polyethylene Glycol 3350 [Miralax] 17 gm PO DAILY 10/31/18 [Last Taken Unknown] Rivaroxaban [Xarelto] 20 mg PO DAILY 10/31/18 [Last Taken Unknown] Spironolactone [Aldactone] 25 mg PO DAILY 10/31/18 [Last Taken Unknown] Sulfasalazine [Azulfidine] 1,000 mg PO BID 10/31/18 [Last Taken Unknown] Ustekinumab [Stelara] 90 mg SQ MONTHLY 10/31/18 [Last Taken Unknown] Cephalexin [Keflex] 500 mg PO BID 7 Days #14 cap 11/01/18 [Last Taken Unknown] Discharge Plan - Discharge Instructions Activity at Discharge: Resume Usual Activities As Tolerated Diet at Discharge: Advance to Usual Diet Additional Instructions: Please advance your diet slowly when you return home. Continuing with mostly liquids and then having softer foods as your symptoms permit. Resume all home medications as prescribed by your PCP and follow up with him in 5-7 days from discharge. want ad supervisor Kelfex 500mg and take twice daily for the next 7 days for the cellulitis of your right leg. Quality Measures - Quality Measures Quality Measures: Atrial Fibrillation & Atrial Flutter: Chronic Anticoagulation Therapy, Advance Directives, Documentation of Current Medications in Medical Record, Elder Maltreatment Screen and Follow-Up Plan, Screening for High Blood Pressure and F/U Documented - Current Medications Quality Measure: Measure #130: Documentation of Current Medications Documentation of Current Medications: <Current Medications Documented/Reviewed> [G8427] - Blood Pressure Screening Quality Measure: Screening for High Blood Pressure and Follow-Up Documented Does Patient Have Any of the Following: Active Dx of HTN Blood Pressure Classification: Normal BP Reading Systolic Measurement: 110 Diastolic Measurement: 41 Screening for High Blood Pressure: Patient Exclusion, Hx of HTN [G9744] - Atrial Fibrillation and Atrial Flutter Quality Measure: Atrial Fibrillation & Atrial Flutter: Chronic Anticoagulation Therapy Does Patient Have Any of the Following: No CHADS2 Risk Stratification: Hypertension, Heart Failure or Impaired LVSF Risk Stratification Summary: One or more high risk factors OR more than one moderate risk factor exists. [G2440] Anticoagulation Therapy: <Oral anticoagulant Prescribed> [G8967] - Advance Directives Quality Measure: Measure #47: Care Plan Advance Directives Established: No Advance Directives Information Provided To Patient: Already Provided Advance Directives on File: No Living Will: No Power of Compensator: No Advance Care Planning: <Care Plan/Decision Maker Not Decided; Discussed & Documented> [6254F] - Elder Abuse Suspicion Index Screening: Elder Abuse Suspicion Index Screening Rely on people for bathing, dressing, shopping, banking, etc: No Prevented from getting food, clothes, medication, etc: No Made to feel shamed or threatened by someone: No Forced to sign papers or use money against will: No Feel afraid, touched in ways not wanted or hurt physically: No Poor eye contact, withdrawn, malnourished, cuts or bruises: No Screening Result: Negative result EASI Reference Information: Saba CRUZ, María C, Julián D, Jacob Nolasco.Development and validation of a tool to assist physicians identification of elder abuse: The Elder Abuse Suspicion Index (EASI ). Journal of Elder Abuse and Neglect, 2008; 20 (3): 276-300. - Elder Maltreatment Screen Quality Measures: Elder Maltreatment Screen and Follow-Up Plan Elder Maltreatment Screen: <Negative, No Follow-Up Plan Required> [G8750]
== END 2018-11-01 13:30 | disposition home or self-care (01) | DRG 392 ==
LOC: ER 23:43 → MEDSURG 10-31 03:19
PROVIDERS: ADMIT Internal Medicine; ATTEND Internal Medicine
DX: R11.2 Nausea with vomiting, unspecified (principal); K50.90 Crohn's disease, unspecified, without complications; I82.4Z1 Acute embolism and thrombosis of unspecified deep veins of right distal lower extremity; K59.00 Constipation, unspecified; K58.9 Irritable bowel syndrome, unspecified; I50.9 Heart failure, unspecified; I48.91 Unspecified atrial fibrillation; Z79.01 Long term (current) use of anticoagulants; J44.9 Chronic obstructive pulmonary disease, unspecified; E66.9 Obesity, unspecified; Z86.011 Personal history of benign neoplasm of the brain; Z87.891 Personal history of nicotine dependence; Z29.9 Encounter for prophylactic measures, unspecified
CPT/HCPCS: 36416; 71045; 74177; 80053; 81003; 82948; 83690; 83880; 84484; 85027; 93005; 93010; 94640; 94760; 94761; 96374; 96376; 99223; 99238; 99285; J1885; J2405; J7030